=== PATIENT | female | born 1960 | race Caucasian/White ===

== ENCOUNTER 2017-03-29 10:57 | Emergency (ER) | payer SELFPAY ==
[~2017-03-29] VITALS: Ht 162.6 cm; Wt 88.0 kg
[~2017-03-29 10:57] MED LIST: BUSP10TA PO; D32000CA PO; FISH100020 PO; FLUO10TA PO; GABA800T PO; GLIM2TAB PO; GLUCTAB PO; METF-324 PO; PROT40TA PO; VALS160T4 PO; VITA10004 PO; ZOFR4TAB3 SL
[2017-03-29 11:06] VITALS: BP 174/75; PULSE 87; RESP 18; TEMP 98.4; O2SAT 100
[2017-03-29] MEDS ORDERED: BUSP10TA PO (11:24)
[2017-03-29] MEDS ORDERED: VALS80TA2 PO (11:24)
[2017-03-29] MEDS ORDERED: ASPI-516 CHEW (11:24)
[2017-03-29] MEDS ORDERED: GLIM2TAB PO (11:24)
[2017-03-29] MEDS ORDERED: PROT40TA PO (11:24)
[2017-03-29] MEDS ORDERED: METF-382 PO (11:24)
[2017-03-29] MEDS ORDERED: B-122000 PO (11:24)
[2017-03-29] MEDS ORDERED: D200CAP PO (11:24)
[2017-03-29] MEDS ORDERED: LIPI40TA PO (11:24)
[2017-03-29] MEDS ORDERED: PLAV75TA29 PO (11:24)
[2017-03-29] MEDS ORDERED: FLUO20CA12 PO (11:24)
[2017-03-29] MEDS ORDERED: OMEGCAP PO (11:24)
[2017-03-29] MEDS ORDERED: GABA800T PO (11:24)
[2017-03-29] MEDS ORDERED: AZIT250T3 PO (11:38)
[2017-03-29] MEDS ORDERED: ROBA500T PO (11:38)
[2017-03-29] MEDS ORDERED: BENZ100 PO (11:38)
--- NOTE | 2017-03-29 11:38 | PD ---
HPI Chief Complaint: Cold / Flu Symptoms Time Seen by Provider: 11:19 Travel History International Travel<30 days: No Contact w/Intl Traveler<30days: No Traveled to known affect area: No History of Present Illness HPI 56-year-old female here with productive cough and colored sputum and left sciatica pain. Patient reports the cough has been present for greater than a week. She noticed yellowish-green sputum several days ago. Subjective fever. She denies chest pain, shortness of breath. She is also reporting left-sided sciatica pain. She has a history of sciatica in the similar. She denies injury or trauma to the area. She denies paresthesia or weakness of the extremity. Symptom severity is moderate. No aggravating or alleviating factors. PFSH Past Medical History Anxiety: Yes Cardiovascular Problems: Yes (CT DONE OF [place] WITH RUNOFF ON 01/10/14, [place]. LEG ARTERIAL DOPPLER: ) High Cholesterol: Yes Diabetes: Yes Patient Takes Glucophage: Yes Diminished Hearing: No GERD: Yes Hypertension: Yes Medical other: Yes (PAD) Triglycerides - High: Yes Tetanus Vaccination: Unknown Influenza Vaccination: No ?: Not Menopausal: Yes : 0 Ovarian Cysts: Yes Social History Alcohol Use: No Tobacco Use: No (QUIT AGE 17, SMOKED FOR ONE YEAR) Substance Use: No Allergies-Medications (Allergen,Severity, Reaction): Coded Allergies: Iodinated Contrast- Oral and IV Dye (Unverified Allergy, Intermediate, Rash, 03/29/17) RASH ON CHEST AND NECK, "AND A COUPLE OF LITTLE HIVES" Reported Meds & Prescriptions Reported Meds & Active Scripts Active Tessalon Perles (Benzonatate) 100 Mg Cap 200 Mg PO TID PRN Robaxin (Methocarbamol) 500 Mg Tab 500 Mg PO TID Azithromycin 250 Mg Tab 250 Mg PO DIRECTED Take 2 tabs (500 mg) on day 1 then 1 tab daily x 4 days. Protonix (Pantoprazole Sodium) 40 Mg Tabdr 40 Mg PO DAILY Zofran ODT (Ondansetron HCl) 4 Mg Tab 4 Mg SL Q6H PRN FOR NAUSEA/VOMITING Reported [place]-3 Fish Oil/Vitamin (Fish Oil-Cholecalciferol) 1,000-1,000 Mg Cap 1 Cap PO DAILY Lipitor (Atorvastatin Calcium) 40 Mg Tab 40 Mg PO HS B-12 (Cyanocobalamin) 2,000 Mcg Tab 2,000 Mcg PO DAILY D3 Super Strength (Cholecalciferol) 2,000 Unit Cap 2,000 Units PO DAILY Protonix (Pantoprazole Sodium) 40 Mg Tab 40 Mg PO DAILY Metformin ER (Metformin HCl) 1,000 Mg Saundra 1,000 Mg PO BID With evening meal Glimepiride 2 Mg Tab 2 Mg PO BIDAC Gabapentin 800 Mg Tab 800 Mg PO TID Fluoxetine (Fluoxetine HCl) 20 Mg Capsule 20 Mg PO DAILY Buspirone (Buspirone HCl) 10 Mg Tab 10 Mg PO DAILY Plavix (Clopidogrel Bisulfate) 75 Mg Tab 75 Mg PO DAILY Aspirin 81 Mg Chew 81 Mg CHEW DAILY Valsartan-Hydrochlorothiazide 80-12.5 Mg Tab 1 Tab PO DAILY Glimepiride 2 Mg Tab 2 Mg PO BID Valsartan/Hydrochlorothia (Valsartan-Hydrochlorothiazide) 1 Tab Tab 1 Tab PO DAILY Fish Oil ([place]-3 Fatty Acids) 1,000 Mg Cap 1,000 Mg PO DAILY Vitamin B-12 Cr (Cyanocobalamin) 1 000 Tab 1 Tab PO DAILY D3 (Cholecalciferol) 2,000 Unit Cap 2,000 Unit PO DAILY Glucophage XR 24 HR (Metformin HCl) 500 Mg Tab 500 Mg PO 1300 Metformin ER 24 HR (Metformin HCl) 1,000 Mg Tab 1,000 Mg PO BIDPC Buspirone Hcl (Buspirone HCl) 10 Mg Tab 15 Mg PO DAILY Fluoxetine (Fluoxetine HCl) 10 Mg Tab 10 Mg PO DAILY Gabapentin 800 Mg Tab 800 Mg PO HS Review of Systems General / Constitutional: Positive: Fever Eyes: No: Visual changes HENT: No: Headaches Cardiovascular: No: Chest Pain or Discomfort Respiratory: Positive: Cough, No: Shortness of Breath Gastrointestinal: No: Abdominal Pain Genitourinary: No: Dysuria Physical Exam Narrative GENERAL: Alert female. Well-appearing. SKIN: Warm and dry. HEAD: Normocephalic. EYES: No injection or drainage. NECK: Supple, trachea midline. CARDIOVASCULAR: Regular rate and rhythm without murmurs, gallops, or rubs. RESPIRATORY: Breath sounds equal bilaterally. No accessory muscle use. Rhonchorous cough. GASTROINTESTINAL: Abdomen soft, non-tender, nondistended. MUSCULOSKELETAL: No cyanosis, or edema. Normal strength and sensation in lower extremities. She is able to flex and extend great toes. BACK: Tenderness over the left sacroiliac joint. Positive straight leg raise. Without obvious deformity. No CVA tenderness. Data Data Last Documented VS Vital Signs Date Time Temp Pulse Resp B/P (MAP) Pulse Ox O2 Delivery O2 Flow Rate FiO2 03/29/17 11:06 98.4 87 18 174/75 (108) 100 Orders Orders Ed Discharge Order (03/29/17 11:38) MDM Medical Decision Making Medical Screen Exam Complete: Yes Emergency Medical Condition: Yes Differential Diagnosis Bronchitis, pneumonia, influenza, sciatica, lumbar strain Narrative Course 56-year-old female here with productive cough and colored sputum and left sciatica pain. Symptom severity is moderate. She has a normal neurologic exam. She is nontoxic appearing. Diagnosis Primary Impression: Bronchitis Additional Impression: Sciatica Qualified Codes: M54.32 - Sciatica, left side Referrals: Primary Care Physician Additional Instructions: Antibiotics as prescribed. Muscle relaxer as prescribed. Follow-up with her primary doctor. Scripts Benzonatate (Tessalon Perles) 100 Mg Cap 200 MG PO TID Y for COUGH, #12 CAP 0 Refills Prov: Erika Reardon 03/29/17 Methocarbamol (Robaxin) 500 Mg Tab 500 MG PO TID for Muscle Spasm, #12 TAB 0 Refills Prov: Erika Reardon 03/29/17 Azithromycin (Azithromycin) 250 Mg Tab 250 MG PO DIRECTED for Infection, #6 TAB 0 Refills Take 2 tabs (500 mg) on day 1 then 1 tab daily x 4 days. Prov: Erika Reardon 03/29/17 Disposition: 01 DISCHARGE HOME Condition: Stable Erika Reardon Mar 29, 2017 11:38
== END 2017-03-29 11:57 | disposition home or self-care (01) ==
LOC: PHEFT 10:57
DX: J40 Bronchitis, not specified as acute or chronic (principal); M54.32 Sciatica, left side
CPT/HCPCS: 99284